=== PATIENT | male | born 1955 | race Caucasian/White ===

== ENCOUNTER 2021-04-07 15:39 | Emergency (ER) | payer OTHER ==
[~2021-04-07] VITALS: Ht 182.9 cm; Wt 113.6 kg
[2021-04-07 16:22] VITALS: BP 120/73
[2021-04-07] MEDS ORDERED: BENZ-16 PO (16:32)
[2021-04-07] MEDS ORDERED: ALBU18HF2 INH (16:32)
== END 2021-04-07 16:57 | disposition home or self-care (01) ==
LOC: ER 15:40
DX: U07.1 COVID-19 (principal); R11.0 Nausea; R09.89 Other specified symptoms and signs involving the circulatory and respiratory systems; R06.02 Shortness of breath; R50.9 Fever, unspecified; R05 Cough; Z79.899 Other long term (current) drug therapy
CPT/HCPCS: 99283